=== PATIENT | male | born 1980 | race Caucasian/White ===

== ENCOUNTER 2019-08-25 17:54 | Emergency (ER) | payer OTHER ==
[~2019-08-25] VITALS: Ht 170.2 cm; Wt 72.6 kg
[2019-08-25] MEDS ORDERED: TYLENOL-CODEINE1 TA1 (20:44)
[2019-08-26] MEDS ORDERED: ULTRACET PO (03:13)
[2019-08-26] MEDS ORDERED: TAMS0.4C PO (03:14)
== END 2019-08-26 07:39 | disposition home or self-care (01) ==
LOC: ER 17:54
DX: N20.0 Calculus of kidney (principal); K59.09 Other constipation; R10.32 Left lower quadrant pain